=== PATIENT | female | born 1980 | race Caucasian/White ===

== ENCOUNTER 2020-01-06 23:35 | Emergency (ER) | payer BC, OTHER ==
[~2020-01-06] VITALS: Ht 157 cm; Wt 73.0 kg
--- OUTSIDE RECORDS SUMMARY | 2020-01-06 23:43 | XMS REPORT ---
Author Author Evelyn JOHNSON Organization [facility] Address [address] [place] [address] Care Team Providers Care Wheel Polisher Name Role Phone HERMINIA JOHNSON Unavailable PROBLEMS Type Condition ICD9-CM Code [id number] Code Onset Dates Condition S tatus SNOMED Code Problem Family history of breast cancer in first degree relative Z80.3 Active 132586565 Problem Essential hypertension I10 Active [id number] ALLERGIES No Information ENCOUNTERS Encounter Location Date Diagnosis [address] [address] Jan, Encounter for Depo-Provera contraception Z30.[address] [address] December, [address] [address] Oct, History of migraine Z86.69 ; Elevated BP without diagnosis of hypertension R03.0 and Encounter for Depo-Provera contraception Z30.[address] [address] Oct, Hypokalemia E87.[address] [address] Oct, Abnormal mammogram R92.[address] [address] Sep, Abnormal mammogram R92.8 and Hypokalemia E87.[address] [address] Sep, Family history of breast cancer in first degree relative Z80.3 ; Hypokalemia E87.6 and Essential hypertension I10 [address] [address] Sep, Family history of breast cancer in first degree relative Z80.3 ; Hypokalemia E87.6 and Essential hypertension I10 IMMUNIZATIONS No Known Immunizations SOCIAL HISTORY Never Assessed REASON FOR VISIT Lab (walk-in) PLAN OF CARE VITAL SIGNS MEDICATIONS Unknown Medications RESULTS No Results PROCEDURES Procedure Date Ordered Result Body Site VENIPUNCT, ROUTINE* October 29, 2018 BASIC METABOLIC PANEL October 29, 2018 INSTRUCTIONS MEDICATIONS ADMINISTERED No Known Medications
--- OUTSIDE RECORDS SUMMARY | 2020-01-06 23:43 | XMS REPORT ---
Author Author Evelyn JOHNSON Organization [facility] Address [address] [place] [address] Care Team Providers Care Pilot Control Operator Name Role Phone HERMINIA JOHNSON Unavailable PROBLEMS Type Condition ICD9-CM Code [id number] Code Onset Dates Condition S tatus SNOMED Code Problem Family history of breast cancer in first degree relative Z80.3 Active 111643092 Problem Essential hypertension I10 Active [id number] ALLERGIES No Information ENCOUNTERS Encounter Location Date Diagnosis [address] [address] Jan, [address] [address] December, [address] [address] Oct, History of migraine Z86.69 ; Elevated BP without diagnosis of hypertension R03.0 and Encounter for Depo-Provera contraception Z30.[address] [address] Oct, Hypokalemia E87.[address] [address] Oct, Abnormal mammogram R92.[address] [address] Sep, Abnormal mammogram R92.8 and Hypokalemia E87.[address] [address] Sep, Family history of breast cancer in first degree relative Z80.3 ; Hypokalemia E87.6 and Essential hypertension I10 [address] [address] Sep, Family history of breast cancer in first degree relative Z80.3 ; Hypokalemia E87.6 and Essential hypertension I10 IMMUNIZATIONS No Known Immunizations SOCIAL HISTORY Never Assessed REASON FOR VISIT Diagnostic mammo, [facility] PLAN OF CARE VITAL SIGNS MEDICATIONS Unknown Medications RESULTS Name Result Date Reference Range MAMMOGRAM : DIAGNOSTIC, LEFT UNILATERAL (IN HOUSE) 2018-10-22 PROCEDURES Procedure Date Ordered Result Body Site DX MAMMO INCL CAD UNI October 22, 2018 INSTRUCTIONS MEDICATIONS ADMINISTERED No Known Medications
--- OUTSIDE RECORDS SUMMARY | 2020-01-06 23:43 | XMS REPORT | Continuity of Care Document ---
Author Organization Unknown Address Unknown Phone Unavailable Allergies There is no data. Medications There is no data. Problems There is no data. Procedures There is no data. Results Test Result Range [facility] - 10/29/18 16:15 GLUCOSE 93 mg/dL 65-99 UREA NITROGEN (BUN) 10 mg/dL 7-25 CREATININE 0.76 mg/dL 0.50-1.10 eGFR NON-AFR. LEBANESE 100 mL/min/1.73m2 > OR = 60 eGFR 116 mL/min/1.73m2 > OR = 60 BUN/CREATININE RATIO NOT APPLICABLE (calc) 6-22 SODIUM 142 mmol/L 135-146 POTASSIUM 3.6 mmol/L 3.5-5.3 CHLORIDE 108 mmol/L 98-110 CARBON DIOXIDE 26 mmol/L 20-32 CALCIUM 9.4 mg/dL 8.6-10.2 LIPID PANEL - 09/16/19 07:04 CHOLESTEROL, TOTAL 184 mg/dL <200 HDL CHOLESTEROL 53 mg/dL >50 TRIGLYCERIDES 49 mg/dL <150 LDL-CHOLESTEROL 116 mg/dL (calc) NRG CHOL/HDLC RATIO 3.5 (calc) <5.0 NON HDL CHOLESTEROL 131 mg/dL (calc) <13 0 CMP - 09/16/19 07:04 GLUCOSE 96 mg/dL 65-99 UREA NITROGEN (BUN) 15 mg/dL 7-25 CREATININE 0.74 mg/dL 0.50-1.10 eGFR NON-AFR. LEBANESE 103 mL/min/1.73m2 > OR = 60 eGFR 119 mL/min/1.73m2 > OR = 60 BUN/CREATININE RATIO NOT APPLICABLE (calc) 6-22 SODIUM 141 mmol/L 135-146 POTASSIUM 4.2 mmol/L 3.5-5.3 CHLORIDE 111 mmol/L 98-110 CARBON DIOXIDE 21 mmol/L 20-32 CALCIUM 10.0 mg/dL 8.6-10.2 PROTEIN, TOTAL 6.9 g/dL 6.1-8.1 ALBUMIN 4.5 g/dL 3.6-5.1 GLOBULIN 2.4 g/dL (calc) 1.9-3.7 ALBUMIN/GLOBULIN RATIO 1.9 (calc) 1.0-2. 5 BILIRUBIN, TOTAL 0.4 mg/dL 0.2-1.2 ALKALINE PHOSPHATASE 92 U/L 33-115 AST 16 U/L 10-30 ALT 20 U/L 6-29 SUREPATH PAP AND HPV mRNA E6/E7 REFLEX G ENOTYPES 16, 18/45 - 10/14/19 14:34 CLINICAL INFORMATION: NRG LMP: NRG PREV. PAP: NRG PREV. BX: NRG SOURCE: Cervix NRG STATEMENT OF ADEQUACY: NRG INTERPRETATION/RESULT: NRG LEARNING DESIGN SPECIALIST: NRG HPV mRNA E6/E7, SUREPATH VIAL Not Detected NOT DETECTED INFECTION: NRG COMMENT NRG Encounters ACCT No. Visit Date/Time Discharge Status Pt. Type Provider Facility Loc./Unit Complaint [id number] 11/20/2019 08:40:00 11/20/2019 23:59: 59 [facility] Outpatient [facility] [id number] 10/14/2019 14:00:00 Document Registration [id number] 09/16/2019 07:00:00 Document Registration [id number] 10/29/2018 16:30:00 Document Registration
[2020-01-07] MEDS ORDERED: ENOXAPARIN 60 MG/0.6 ML (LOVENOX) SYR SC ONE
[2020-01-07] MEDS ORDERED: HYDROcodone/APAP 5 MG/325 MG (LORTAB) TAB PO ONE
--- NOTE | 2020-01-07 00:25 | ED Lower Extremity ---
General Chief Complaint: Lower Extremity Stated Complaint: RIGHT LEG PAIN Nursing Triage Note: Pt complaining of right calf and knee pain that started around 1830 tonight. No known injury. 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 Patient states she woke up and felt so she had a cramp in her leg. Pain is persistent. Patient is concerned about possibility of DVT. No history of blood clots. Patient is not currently on anticoagulation therapy. Patient denies chest pain and shortness of breath. Onset: just prior to arrival Pain/Injury Location: right hip, right leg Method of Injury: other Allergies and Home Medications Allergies Coded Allergies: No Known Drug Allergies (Unverified , 01/06/20) Patient Home Medication List Home Medication List Reviewed: Yes Review of Systems Constitutional: no symptoms reported EENTM: no symptoms reported Respiratory: no symptoms reported Cardiovascular: no symptoms reported Gastrointestinal: no symptoms reported Genitourinary: no symptoms reported Musculoskeletal: see HPI Skin: no symptoms reported Psychiatric/Neurological: See HPI Past Lyrrxpn-Xrykmk-Qcdcno Hx Past Med/Social Hx: Reviewed Nursing Past Med/Soc Hx Patient Social History Recent Foreign Travel: No Contact w/Someone Who Travel: No Recent Infectious Disease Expo: No Recent Hopitalizations: No Physical Abuse: No Sexual Abuse: No Past Medical History Surgeries: No Respiratory: No Cardiac: Yes Hypertension Neurological: No Gastrointestinal: No Musculoskeletal: No Endocrine: No HEENT: No Cancer: No Psychosocial: No Integumentary: No Blood Disorders: Yes (Factor V) Physical Exam Vital Signs Vital Signs - First Documented 01/06/20 23:40 Temp 37.6 Pulse 73 Resp 18 B/P (MAP) 189/120 (143) Pulse Ox 98 O2 Delivery Room Air Capillary Refill : Less Than 3 Seconds Height, Weight, BMI Height: '" Weight: lbs. oz. kg; 29.00 BMI Method: General Appearance: WD/WN, mild distress (secondary to pain) HEENT: normal ENT inspection, pharynx normal Neck: normal inspection Cardiovascular: normal peripheral pulses, regular rate, rhythm Respiratory: chest non-tender, lungs clear, normal breath sounds Gastrointestinal: normal bowel sounds, non tender Back: normal inspection Legs: right leg soft tissue tenderness, right leg swelling Neurologic/Tendon: normal sensation, normal motor functions Neurologic/Psychiatric: no motor/sensory deficits, alert, oriented x 3 Skin: normal color, warm/dry Progress/Results/Core Measures Results/Orders My Orders Orders - KEDAR ADORNO DO Enoxaparin Injection (Lovenox Injection) (01/07/20 00:00) Hydrocodone/Apap 5/325 Tablet (Lortab 5 (01/07/20 00:00) Medications Given in ED Current Medications Medications Dose Ordered Sig/Eduardo Route Start Time Stop Time Status Last Admin Dose Admin Acetaminophen/ Hydrocodone Bitart 1 tab ONCE ONCE PO 01/07/20 00:00 01/07/20 00:02 DC 01/07/20 00:04 1 TAB Enoxaparin Sodium 120 mg ONCE ONCE SC 01/07/20 00:00 01/07/20 00:02 DC 01/07/20 00:05 120 MG Vital Signs/I&O 01/06/20 23:40 Temp 37.6 Pulse 73 Resp 18 B/P (MAP) 189/120 (143) Pulse Ox 98 O2 Delivery Room Air Blood Pressure Mean: 143 Departure Communication (Admissions) Concern for possible DVT. Ultrasound is not available at this facility or [place]. Lovenox and hydrocodone given. Patient is accepted into the [place] ED per Dr. Mccracken at 00:20 and won't track arrival POV Impression Primary Impression: Right leg pain Disposition: XFER SHT-TRM HOSP Condition: Stable Transfer Transfer Reason: Exceeds level of care Time Spoke to Accepting Phy: 00:25 Transfer Progress Notes Venous Doppler ultrasound unavailable at this facility Transfer Time: 00:26 Method of Transfer: Private Vehicle Departure-Patient Inst. Add. Discharge Instructions: Please take Ty All discharge instructions reviewed with patient and/or family. Voiced understanding. KEDAR ADORNO DO January 07, 2020 00:25
[2020-01-07 00:35] VITALS: BP 162/115
== END 2020-01-07 00:40 | disposition short-term general hospital (02) ==
LOC: ER FS 23:39
DX: M79.661 Pain in right lower leg (principal); X50.1XXA Overexertion from prolonged static or awkward postures, initial encounter
CPT/HCPCS: 99283

== ENCOUNTER → 2020-01-12 | Outpatient (CLI) | payer BC ==
--- NOTE | 2020-01-12 10:41 | Diagnostic Imaging Report ---
INDICATION: Low back pain. TIME OF EXAM: 10:30 AM Curvature and alignment of the lumbar spine is normal. Vertebral body heights are maintained. Disc spaces are preserved. There is some degenerative disc disease at the L5-S1 level with slight disc space narrowing. There is marginal osteophyte formation. There also appears to be very slight retrolisthesis of L5 on S1. There appears to be lower lumbar facet arthropathy. This is most marked at the L5-S1 level. IMPRESSION: L5-S1 degenerative disc and facet disease. No acute bony abnormality is detected. Dictated by: Dictated on workstation # [id number]
== END ==
LOC: RAD FS 10:15
PROVIDERS: ATTEND Nurse Practitioner Family
DX: M51.37 Other intervertebral disc degeneration, lumbosacral region (principal)
CPT/HCPCS: 72100

== ENCOUNTER → 2023-03-30 | Outpatient (CLI) | payer BC ==
--- NOTE | 2023-03-30 10:54 | Diagnostic Imaging Report ---
PROCEDURE: MRI lumbar spine. TECHNIQUE: Multiplanar, multisequence MRI of the lumbar spine was performed without contrast. INDICATION: Low back pain. COMPARISON: None FINDINGS: For the purposes of this exam, last well-formed disc space is noted the L5-S1 level. Evaluation static alignment shows slight grade 1 retrolisthesis L5-S1. There is no evidence of jumped facets. Vertebral body heights are preserved. There is no acute fracture. Marrow signal is noted throughout. There is mild multilevel intervertebral disc height loss. Posterior annular tears also noted at L5-S1. Visualized portions of distal cord are unremarkable. Conus terminates approximately the L1-L2 level. No abnormal intrathecal filling defects are seen. Pre and paravertebral soft tissue structures are unremarkable. Axial images demonstrate the following: T11-T12: There is broad-based posterior disc bulge. As a result, there is mild narrowing of spinal canal. Neural foramen are unremarkable. T12-L1 through L4-L5: There is minimal posterior disc bulge. This results in minimal flattening of the anterior thecal sac. There is otherwise no significant spinal canal or neural foraminal stenosis. L5-S1: There is central posterior disc protrusion superimposed on broad-based posterior disc bulge. Note is again made of associated posterior annular tear. There is also bilateral facet arthropathy. As a result, there is minimal narrowing of spinal canal. There is also mild asymmetric narrowing of the left neural foramen. Right neural foramen is unremarkable. IMPRESSION: 1. Multilevel degenerative changes of the lumbar spine greatest the L5-S1 level as above. 2. No acute fracture or dislocation. Dictated by: Dictated on workstation # [id number]
== END ==
LOC: RAD 09:06
PROVIDERS: ATTEND Nurse Practitioner Family
DX: M47.817 Spondylosis without myelopathy or radiculopathy, lumbosacral region (principal); M51.36 Other intervertebral disc degeneration, lumbar region; M51.37 Other intervertebral disc degeneration, lumbosacral region; M51.34 Other intervertebral disc degeneration, thoracic region
CPT/HCPCS: 72148